=== PATIENT | female | born 1950 | race Caucasian/White ===

== ENCOUNTER 2023-07-08 00:09 | Day surgery (SDC) | payer MEDICARE, SELFPAY ==
[2023-06-12 09:29] VITALS: BMI 27.8
--- NOTE | 2023-07-04 11:24 | SUR.PHASEII ---
Patient called regarding upcoming procedure. HOME PHONE LISTED HAS A VOICEMAIL BOX THAT HAS NOT BEEN SET UP. CELL PHONE LISTED STATED BEING DISCONNECTED OR NO LONGER IN SERVICE.
--- NOTE | 2023-07-07 19:31 | PM.HPGS ---
History of Present Illness History of Present Illness Consent: Risks, benefits, and alternatives have been discussed and questions answered. Patient agrees to proceed with procedure. Chief complaint: neoplasm screening Narrative: Rosemary Ann is a 72 year old female who is referred for colon cancer screening. Review of Systems Review of Systems: All systems reviewed & are unremarkable except as noted in HPI and below PMFSH Family History Family History Other Acute myocardial infarction Family history of Alzheimer's disease Family history of coronary artery disease Social History Social History Smoking status: Never smoker Alcohol intake: current Drinks per week: 1 Alcohol use details: ONE SHOT OF [employer] Substance use: never Substance use type: does not use Living arrangements: with family Spiritual care concerns: No Meds Home Medications and Allergies Home Medications Medication Instructions Recorded Confirmed Type atorvastatin 10 mg tablet 10 mg PO DAILY 06/12/23 07/08/23 History levothyroxine 88 mcg tablet 88 mcg PO DAILY 06/12/23 07/08/23 History Allergies Allergy/AdvReac Type Severity Reaction Status Date / Time Penicillins Allergy Unknown Rash Verified 07/08/23 07:44 Sulfa (Sulfonamide Allergy Unknown Unknown Verified 07/08/23 07:44 Antibiotics) Exam Resp: Auscultation: clear to auscultation bilaterally Cardio: Rate: regular rate Rhythm: regular rhythm GI: GI Palp: Yes Soft to palpation and No Tenderness to palpation present (GI) Assessment and Plan Assessment and plan (1) Colon cancer screening: Code(s): Z12.11 - Encounter for screening for malignant neoplasm of colon Status: Acute Assessment and Plan: Colonoscopy with possible biopsy or polypectomy or cautery or injection of substances.
[2023-07-08 07:46] VITALS: BP 146/83; PULSE 69; RESP 20; TEMP 36.1; O2SAT 100; BMI 27.5
[2023-07-08] MEDS: LACTATED RINGERS 1,000 ML 150 ML IV CONT (07:50)
--- NOTE | 2023-07-08 08:34 | P.PNAN_ITS ---
Anes - Initial Pre Proc Eval Procedure: Operation Date: 07/08/23 09:00 Proposed Procedures p Screening Colonoscopy - Dereje Miller MD Date/Time: 07/08/23 08:34 Surgeon: Dereje Miller MD Pre Op Diagnosis: neoplasm screening Patient Data Age: 72 Gender: F Height: 1.65 m Weight: 75.1 kg Last Vital Signs Temp 96.9 F L 07/08/23 07:46 Pulse 69 07/08/23 07:46 Resp 20 07/08/23 07:46 BP 146/83 H 07/08/23 07:46 Pulse Ox 100 07/08/23 07:46 O2 Del Method Room Air 07/08/23 07:46 Allergies Allergy/AdvReac Type Severity Reaction Status Date / Time Penicillins Allergy Unknown Rash Verified 07/08/23 07:44 Sulfa (Sulfonamide Allergy Unknown Unknown Verified 07/08/23 07:44 Antibiotics) Home Medications Medication Instructions Recorded Confirmed Type atorvastatin 10 mg tablet 10 mg PO DAILY 06/12/23 07/08/23 History levothyroxine 88 mcg tablet 88 mcg PO DAILY 06/12/23 07/08/23 History Patient hx anesthesia problems: none Family hx anesthesia problems: none Results Review: All pre-operative results and documents have been reviewed as part of the pre- operative evaluation. [facility] [place] Family History Family History Other Acute myocardial infarction Family history of Alzheimer's disease Family history of coronary artery disease Social History Social History Smoking status: Never smoker Alcohol intake: current Drinks per week: 1 Alcohol use details: ONE SHOT OF [employer] Substance use: never Substance use type: does not use Living arrangements: with family Spiritual care concerns: No Anes - Eval Final PreProcedure Day of Procedure 07/08/23 08:34 Patient weight: obese Heart: regular rate and rhythm Lungs: clear to auscultation Airway: Mallampati scale class II Neurological: alert and oriented Last oral intake: >/= 8 hours ASA classification: III Emergent: no Anesthetic plan: proceed Anesthesia type and monitoring: general GIVS and standard monitoring Results Review: All pre-operative results and documents have been reviewed as part of the pre-operative evaluation. Informed Consent: The patient's anesthetic plan and its attendant risks and benefits were discussed with the patient/family/POA. Questions were solicited and answers provided to the satisfaction of the patient/family/POA.
[2023-07-08 09:00] VITALS: BP 116/63; PULSE 69; RESP 16; O2SAT 98
[2023-07-08 09:10] VITALS: BP 102/66; PULSE 72; RESP 15; O2SAT 99
[2023-07-08 09:20] VITALS: BP 102/66; PULSE 72; RESP 15; O2SAT 99
== END 2023-07-08 09:38 | disposition home or self-care (01) ==
PROVIDERS: PCP Nurse Practitioner Family; Visit Provider Internal Medicine Gastroenterology
PROC: 0DJD8ZZ Inspection of Lower Intestinal Tract, Via Natural or Artificial Opening Endoscopic (ICD-10-PCS; CPT 45378; principal; 2023-07-08 09:00)
DX: Z12.11 Encounter for screening for malignant neoplasm of colon (principal); K64.8 Other hemorrhoids; K57.30 Diverticulosis of large intestine without perforation or abscess without bleeding; E66.9 Obesity, unspecified; Z68.27 Body mass index [BMI] 27.0-27.9, adult
CPT/HCPCS: G0121; J2704; J7120